=== PATIENT | male | born 1995 | race Caucasian/White ===

== ENCOUNTER 2021-08-13 06:40 | Emergency (ER) | payer SELFPAY ==
--- OUTSIDE RECORDS SUMMARY | 2021-08-13 06:43 | XMS REPORT | Continuity of Care Document ---
:1995 Author Organization [facility] t Address [address] [place] [address] Care Team Providers Name Role Phone Lab, Adc Fam Pob I Attending Clinician Unavailable Anene PERSONAL CARE AID Attending Clinician ANENE Attending Clinician Unavailable Doctor Unassigned, Name Attending Clinician Unavailable Payers Payer Name Policy Type Policy Number Effective Date Expiration Date S ource Problems This patient has no known problems. Allergies, Adverse Reactions, Alerts Allergy Allergy Status Severity Reaction(s) Onset Inactive Treating Comm ents Source Name Type Date Date Clinician NO KNOWN Drug Active Univers ALLERGIE Class ity of S [facility] Social History Social Habit Start Date Stop Date Quantity Comments Source Sex Assigned At Uni versity [facility] Smoking Status Start Date Stop Date Source Unknown if ever smoked Universit y [facility] Medications Ordered Filled Start Stop Current Ordering Indication Dosage Frequency Signature Comments Components Source Medication Medication Date Date Medication? Clinician (SIG) Name Name METFORMIN Yes Take by [facility] ers HCL 1-31 mouth. ity of (METFORMIN 06:30: [place]) Medical Branch METFORMIN Yes Take by [facility] ers HCL 1-31 mouth. ity of (METFORMIN 06:30: [place]) [address] [place] [address] Branch butalbital- Yes 1{tbl} Take 1 Un shameka acetaminoph 1-31 tablet by ity of en-caff 00:00: mouth [place] 50-325-40 00 every 4 Medical mg tablet (four) Branch hours as needed (Headache) . butalbital- Yes 1{tbl} Take 1 Un [place] acetaminoph 1-31 tablet [facility] 00:00: mouth [place] 50-325-40 00 every 4 Medical mg tablet (four) Branch hours as needed (Headache) . Procedures This patient has no known procedures. Encounters Start End Encounter Admission Attending Care Care Encounter Source Date/Time Date/Time Type Type Clinicians Facility Department ID 2020-02-25 2020-02-25 Laboratory Lab, [facility] Fam Pob I [facility] [id number] Univers 15:31:16 15:51:16 Only Ana Guanaco Chente [id number] ity of [place] [id number] Seth as Professio [phone] Nv dical [facility] [address] 2020-02-25 2020-02-25 Laboratory Lab, [facility] [id number] 15:31:16 15:51:16 Only [facility] Pob I Health [id number] [place] [id number] Professio [phone] nal [address] 2020-02-25 2020-02-25 Outpatient R ANA [facility] [id number] Univers 15:20:00 15:20:00 GUANACO rivera of [facility] 2020-02-25 2020-02-25 Letter Doctor FLORINDA [id number] 00:00:00 00:00:00 (Out) Unassigned, ZAFAR [id number] [place] [facility] [id number] [facility] 2020-02-25 2020-02-25 Letter Doctor FLORINDA [id number] Univers 00:00:00 00:00:00 (Out) Unassigned, ZAFAR [id number] ity of [place] [facility] [id number] Seth as [phone] [place] [address] Branch Results This patient has no known results.
[2021-08-13] MEDS ORDERED: ONDANSETRON 4 MG/2 ML VIAL ONE (07:36)
[2021-08-13] MEDS ORDERED: NA CHLORIDE 0.9% 1,000 ML ONE ×2 (07:36→09:15)
[2021-08-13 07:39] LABS: Absolute Lymphocytes (CBC) 1.4 K/uL (0.7-4.9); Hematocrit 51.5 % (39.6-49.0); Lymphocytes % 11.7 % (15.3-44.8); MPV 8.1 fL (7.6-11.3); RBC Red Blood Cell Count 5.89 M/uL (4.33-5.43)
[2021-08-13 07:48] LABS: Arterial Blood Carboxyhemoglob 1.7 % (0-1.5); Blood Gas Oxyhemoglobin 95.1 % (94-97); Blood O2 Saturation 97.7 % (92-98.5)
[2021-08-13 08:00] LABS: BUN Blood Urea Nitrogen 31 mg/dL (7-18); Bicarbonate 32 mmol/L (21-32); Glucose Level 355 mg/dL (74-106); Potassium 3.8 mmol/L (3.5-5.1); Sodium Level 128 mmol/L (136-145)
[2021-08-13] MEDS ORDERED: INSULIN -REGULAR HUMAN 50 UNIT/0.5 ML ML ONE (08:50)
--- NOTE | 2021-08-13 09:00 | RAD REPORT ---
EXAM DESCRIPTION: CTAbdomen Pelvis W Contrast - 08/13/2021 8:24 am CLINICAL HISTORY: Abdominal pain. nausea/vomiting, elevated WBC COMPARISON: No comparisons TECHNIQUE: Biphasic CT imaging of the abdomen and pelvis was performed with 100 ml non-ionic IV cont rast. All CT scans are performed using dose optimization technique as appropriate and may include automated exposure control or mA/KV adjustment according to patient size. FINDINGS: The lung bases are clear. The liver, spleen, pancreas, adrenal glands and kidneys are within normal limits. No bowel obstruction, free air, free fluid or abscess. The appendix is normal. No evidence of signi ficant lymphadenopathy. No suspicious bony findings. IMPRESSION: No acute intra-abdominal or pelvic finding.
[2021-08-13 10:46] LABS: BUN Blood Urea Nitrogen 26 mg/dL (7-18); Bicarbonate 31 mmol/L (21-32); Glucose Level 276 mg/dL (74-106); Potassium 3.6 mmol/L (3.5-5.1); Sodium Level 131 mmol/L (136-145)
--- NOTE | 2021-08-13 10:57 | ER ---
Nurse's Notes [facility] Name: Jone Kemp Age: 26 yrs Sex: Male : 1995 Arrival Date: 08/13/2021 Time: 06:42 Bed 5 Private MD: Diagnosis: Hyperglycemia, unspecified;Dehydration Presentation: 08/13 07:16 Chief complaint: Patient states: Throwing up, dizziness, not able to keep anything ke1 down, not even water since couple days ago. Coronavirus screen: Vaccine status: Patient reports receiving the 2nd dose of the covid vaccine. unknown. Ebola Screen: Patient negative for fever greater than or equal to 101.5 degrees Fahrenheit, and additional compatible Ebola Virus Disease symptoms No symptoms or risks identified at this time. Initial Sepsis Screen: Does the patient meet any 2 criteria? No. Patient's initial sepsis screen is negative. Initial Sepsis Screen: Does the patient have a suspected source of infection? No. Patient's initial sepsis screen is negative. Risk Assessment: Do you want to hurt yourself or someone else? Patient reports no desire to harm self or others. Onset of symptoms was July 10, 2021. 07:16 Acuity: ALEX 2 ke1 07:16 Method Of Arrival: Ambulatory jd3 Triage Assessment: 07:30 Pain: Complains of pain in abdomen Pain Quality of pain is described as crampy, Pain ke1 began suddenly, Is intermittent. GI: Reports lower abdominal pain, upper abdominal pain. Historical: - Allergies: 07:34 No Known Allergies; ke1 - Home Meds: 07:34 insulin [Active]; ke1 - PSHx: 07:35 Tonsillectomy; ke1 - Immunization history:: Client reports receiving the 2nd dose of the Covid vaccine. - Social history:: Smoking status: Reported history of juuling and/or vaping. - Family history:: not pertinent. - Hospitalizations: : No recent hospitalization is reported. Screenin:41 Abuse screen: Denies threats or abuse. Nutritional screening: No deficits noted. jd3 Tuberculosis screening: No symptoms or risk factors identified. Fall Risk IV access (20 points). Ambulatory Aid- None/Bed Rest/Nurse Assist (0 pts). Gait- Normal/Bed Rest/Wheelchair (0 pts) Mental Status- Oriented to own ability (0 pts). Total Cao Fall Scale indicates No Risk (0-24 pts). Assessment: 07:40 General: Appears in no apparent distress. uncomfortable, Behavior is calm, cooperative, jd3 appropriate for age. Pain: Complains of pain in abdomen Quality of pain is described as aching, tender. Neuro: Level of Consciousness is awake, alert, obeys commands, Oriented to person, place, time, situation. Cardiovascular: Denies chest pain, Capillary refill < 3 seconds Patient's skin is warm and dry. Rhythm is regular. Respiratory: Airway is patent Respiratory effort is even, unlabored, Respiratory pattern is regular, symmetrical, Denies cough, shortness of breath. GI: Abdomen is flat, non-distended, Abd is soft X 4 quads Abdomen is tender to palpation X 4 quads. Reports lower abdominal pain, upper abdominal pain, nausea, vomiting. : No signs and/or symptoms were reported regarding the genitourinary system. EENT: No signs and/or symptoms were reported regarding the EENT system. Derm: Skin is intact, Skin is dry, Skin is normal, Skin temperature is warm. Musculoskeletal: Circulation, motion, and sensation intact. Range of motion: intact in all extremities. 08:10 Reassessment: No changes from previously documented assessment. Patient and/or family jd3 updated on plan of care and expected duration. Pain level reassessed. Patient is alert, oriented x 3, equal unlabored respirations, skin warm/dry/pink. 09:23 Reassessment: No changes from previously documented assessment. Patient and/or family jd3 updated on plan of care and expected duration. Pain level reassessed. Patient is alert, oriented x 3, equal unlabored respirations, skin warm/dry/pink. 10:24 Reassessment: Patient appears in no apparent distress at this time. Patient and/or jd3 family updated on plan of care and expected duration. Pain level reassessed. Patient is alert, oriented x 3, equal unlabored respirations, skin warm/dry/pink. Vital Signs: 07:16 BP 130 / 87; Pulse 119; Resp 19; Temp 98.4; Pulse Ox 100% on R/A; Weight 58.97 kg; ke1 Height 5 ft. 6 in. (167.64 cm); Pain 7/10; 07:37 BP 119 / 97; Pulse 93; Resp 18; Temp 98.4; Pulse Ox 100% on R/A; ke1 08:10 BP 121 / 85; Pulse 88; Resp 18 S; Pulse Ox 97% on R/A; jd3 09:23 BP 130 / 85; Pulse 85; Resp 18 S; Pulse Ox 100% on R/A; jd3 10:24 Pulse 81; Resp 17 S; Pulse Ox 98% on R/A; jd3 11:16 BP 121 / 74; Pulse 95; Resp 18; Temp 98.7; Pulse Ox 99% on R/A; ke1 07:16 Body Mass Index 20.98 (58.97 kg, 167.64 cm) ke1 ED Course: 06:42 Patient arrived in ED. ja2 06:56 John Cruz MD is Attending Physician. rn 07:16 Remberto Mueller, RN is Primary Nurse. jd3 07:30 Triage completed. ke1 07:38 Arm band placed on right wrist. ke1 07:42 Patient has correct armband on for positive identification. Bed in low position. Call jd3 light in reach. Side rails up X2. bus driver/monitor on. Pulse ox on. NIBP on. 08:24 CT Abd/Pelvis - IV Contrast Only In Process Unspecified. EDMS 08:48 EKG done, by ED staff, reviewed by John Cruz MD. em1 08:48 Inserted saline lock: 20 gauge in right antecubital area, using aseptic technique. ke1 10:13 Basic Metabolic Panel Sent. ke1 11:12 No provider procedures requiring assistance completed. IV discontinued. ke1 Administered Medications: 07:39 Drug: NS 0.9% 1000 ml Route: IV; Rate: 1000 ml; Site: right antecubital; jd3 10:02 Follow up: Response: No adverse reaction; IV Status: Completed infusion ke1 07:39 Drug: Zofran (Ondansetron) 4 mg Route: IVP; Site: right antecubital; jd3 11:16 Follow up: Response: No adverse reaction ke1 08:49 Drug: Insulin Regular Human 10 units {Co-Signature: jramsey (Remberto Mueller RN).} Route: ke1 Sub-Q; Site: right upper arm; 11:15 Follow up: Response: No adverse reaction ke1 09:16 Drug: NS 0.9% 1000 ml Route: IV; Rate: 1000 ml; Site: right forearm; ke1 10:01 Follow up: Response: No adverse reaction; IV Status: Completed infusion ke1 Outcome: 10:57 Discharge ordered by . rn 11:13 Discharged to home ambulatory. ke1 11:13 Condition: stable 11:13 Discharge instructions given to patient. 11:14 Patient left the ED. ke1 Signatures: Dispatcher [employer] EDMS John Cruz MD MD rn Martinez, Eric em1 Davies, Jonathon, RN RN jd3 Melissa Sargent Kouassi, RN RN ke1 Jonathon Davies RN jd3 Corrections: (The following items were deleted from the chart) 09:22 07:16 Method Of Arrival: Other [facility] ar[place]
--- NOTE | 2021-08-13 10:57 | EDPHYS ---
Physician Documentation [facility] Name: Jone Kemp Age: 26 yrs Sex: Male : 1995 Arrival Date: 08/13/2021 Time: 06:42 Bed 5 Private MD: ED Physician John Cruz HPI: 08/13 07:32 This 26 yrs old Male presents to ER via Other with complaints of DEHYDRATION, rn Nausea/Vomiting. 07:32 The patient presents to the emergency department with nausea, vomiting. Onset: The rn symptoms/episode began/occurred 3 day(s) ago. Possible causes: Hyperglycemia. The symptoms are aggravated by nothing. The symptoms are alleviated by nothing. Associated signs and symptoms: Pertinent positives: nausea, vomiting, Pertinent negatives: fever, GI bleeding. Severity of symptoms: At their worst the symptoms were moderate in the emergency department the symptoms are unchanged. The patient has experienced similar episodes in the past. The patient has not recently seen a physician. , unaware of his current glucose. Reports 3 days of nausea/vomiting/weakness and malaise. Denies fever or recent illness. Denies cough or congestion. Denies diarrhea.. Historical: - Allergies: 07:34 No Known Allergies; ke1 - Home Meds: 07:34 insulin [Active]; ke1 - PSHx: 07:35 Tonsillectomy; ke1 - Immunization history:: Client reports receiving the 2nd dose of the Covid vaccine. - Social history:: Smoking status: Reported history of juuling and/or vaping. - Family history:: not pertinent. - Hospitalizations: : No recent hospitalization is reported. ROS: 07:32 Constitutional: Negative for fever, chills, and weight loss, Eyes: Negative for injury, rn pain, redness, and discharge, Neck: Negative for injury, pain, and swelling, Cardiovascular: Negative for chest pain, palpitations, and edema, Respiratory: Negative for shortness of breath, cough, wheezing, and pleuritic chest pain, Abdomen/GI: Positive for nausea and vomiting Back: Negative for injury and pain, : Negative for injury, bleeding, discharge, and swelling, MS/Extremity: Negative for injury and deformity, Skin: Negative for injury, rash, and discoloration, Neuro: Negative for headache, numbness, tingling, and seizure. Exam: 07:32 Constitutional: This is a well developed, well nourished patient who is awake, alert, rn appears weak but ambulatory to room without difficulty or requiring assistance Head/Face: Normocephalic, atraumatic. Eyes: Periorbital areas with no swelling, redness, or edema. ENT: Dry mucous membranes Cardiovascular: Tachycardic, regular Respiratory: No increased work of breathing, no retractions or nasal flaring. Abdomen/GI: Soft, non-tender Skin: Warm, dry MS/ Extremity: Pulses equal, no cyanosis. Neuro: Awake and alert, GCS 15 07:58 ECG was reviewed by the Attending Physician. rn Vital Signs: 07:16 BP 130 / 87; Pulse 119; Resp 19; Temp 98.4; Pulse Ox 100% on R/A; Weight 58.97 kg; ke1 Height 5 ft. 6 in. (167.64 cm); Pain 7/10; 07:37 BP 119 / 97; Pulse 93; Resp 18; Temp 98.4; Pulse Ox 100% on R/A; ke1 08:10 BP 121 / 85; Pulse 88; Resp 18 S; Pulse Ox 97% on R/A; jd3 09:23 BP 130 / 85; Pulse 85; Resp 18 S; Pulse Ox 100% on R/A; jd3 10:24 Pulse 81; Resp 17 S; Pulse Ox 98% on R/A; jd3 11:16 BP 121 / 74; Pulse 95; Resp 18; Temp 98.7; Pulse Ox 99% on R/A; ke1 07:16 Body Mass Index 20.98 (58.97 kg, 167.64 cm) ke1 MDM: 06:56 Patient medically screened. rn 07:58 Data interpreted: Arterial blood gas: pH: 7.529, PO2: 96.9, PCO2: 36.1, HCO3: 30, rn Oxygen saturation: 97.7, Oxygen: on room air, Interpretation: metabolic alkalosis. 10:54 Differential diagnosis: Nonspecific abd pain, gastritis, cholecystitis, pancreatitis, rn appendicitis, viral gastroenteritis, gastroenteritis, DKA, hyperglycemia. Data reviewed: vital signs, nurses notes, lab test result(s), radiologic studies, CT scan, and as a result, I will discharge patient. Counseling: I had a detailed discussion with the patient and/or guardian regarding: the historical points, exam findings, and any diagnostic results supporting the discharge/admit diagnosis, lab results, radiology results, the need for outpatient follow up, to return to the emergency department if symptoms worsen or persist or if there are any questions or concerns that arise at home. Response to treatment: the patient's symptoms have markedly improved after treatment, and as a result, I will discharge patient. Special discussion: Based on the patient's Hx, exam, and Dx evaluation, there is no indication for emergent surgery or inpatient Tx. It is understood by the patient/guardian that if the Sx's persist or worsen they need to return immediately for re-evaluation. I discussed with the patient/guardian in detail that at this point there is no indication for admission to the hospital. It is understood, however, that if the symptoms persist or worsen the patient needs to return immediately for re-evaluation. Based on the history and exam findings, there is no indication for further emergent testing or inpatient evaluation. I discussed with the patient/guardian the need to see the primary care provider for further evaluation of the symptoms. ED course: BMP improved after IV hydration. ABG without acidosis. Improved anion gap. Glucose in 200s. Patient states just got needles for his insulin. Will discharge home.. 08/13 07:08 Order name: CBC with Diff; Complete Time: 08:03 rn 08/13 07:08 Order name: Basic Metabolic Panel; Complete Time: 08: rn 08/13 07:08 Order name: SARS-COV-2 RT PCR (Document "Date of Onset" if Symptomatic); Complete Time: rn 09:08/13 07:08 Order name: Ketone, Serum; Complete Time: 08: rn 08/13 07:08 Order name: ABG; Complete Time: 10:52 rn 08/13 07:41 Order name: Glucose, Ancillary Testing; Complete Time: 08:03 EDMS 08/13 07:08 Order name: IV Start; Complete Time: 07:31 rn 08/13 07:08 Order name: EKG; Complete Time: 07: rn 08/13 08:03 Order name: CT Abd/Pelvis - IV Contrast Only; Complete Time: 09:05 rn 08/13 10:02 Order name: Basic Metabolic Panel; Complete Time: 10:52 ke1 08/13 07:08 Order name: Glucose Level; Complete Time: 07:31 rn 08/13 07:08 Order name: EKG - Nurse/Tech; Complete Time: 08:08 rn EC:58 Rate is 80 beats/min. Rhythm is regular. QRS [place] is Normal. IN interval is normal. QRS rn interval is normal. QT interval is normal. No Q waves. T waves are Normal. No ST changes noted. Clinical impression: Normal ECG. Interpreted by me. Reviewed by me. Administered Medications: 07:39 Drug: NS 0.9% 1000 ml Route: IV; Rate: 1000 ml; Site: right antecubital; jd3 10:02 Follow up: Response: No adverse reaction; IV Status: Completed infusion ke1 07:39 Drug: Zofran (Ondansetron) 4 mg Route: IVP; Site: right antecubital; jd3 11:16 Follow up: Response: No adverse reaction ke1 08:49 Drug: Insulin Regular Human 10 units {Co-Signature: claude (Remberto Mueller RN).} Route: ke1 Sub-Q; Site: right upper arm; 11:15 Follow up: Response: No adverse reaction ke1 09:16 Drug: NS 0.9% 1000 ml Route: IV; Rate: 1000 ml; Site: right forearm; ke1 10:01 Follow up: Response: No adverse reaction; IV Status: Completed infusion ke1 Disposition Summary: 08/13/21 10:57 Discharge Ordered Location: Home rn Problem: new rn Symptoms: have improved rn Condition: Stable rn Diagnosis - Hyperglycemia, unspecified rn - Dehydration rn Followup: rn - With: Private Physician - When: As needed - Reason: Recheck today's complaints, Re-evaluation by your physician Discharge Instructions: - Discharge Summary Sheet rn - Dehydration, Adult rn - Hyperglycemia rn - Blood Glucose Monitoring, Adult rn Forms: - Medication Reconciliation Form rn - Thank You Letter rn - Antibiotic rn admissions - Prescription Opioid Use rn Prescriptions: - ondansetron 4 mg Oral tablet,disintegrating - take 1 tablet by ORAL route every 8 hours As needed; 15 tablet; Refills: 0, rn Product Selection Permitted Signatures: Dispatcher [employer] John Waite MD MD rn Davies, Jonathon, RN RN Sanjeev Cruz RN RN ke1 Remberto barond3 Corrections: (The following items were deleted from the chart) 07:34 07:32 Constitutional: Negative for fever, chills, and weight loss, Eyes: Negative for rn injury, pain, redness, and discharge, Neck: Negative for injury, pain, and swelling, Cardiovascular: Negative for chest pain, palpitations, and edema, Respiratory: Negative for shortness of breath, cough, wheezing, and pleuritic chest pain, Abdomen/GI: Positive for nausea and vomiting Back: Negative for injury and pain, : Negative for injury, bleeding, discharge, and swelling, MS/Extremity: Negative for injury and deformity, Skin: Negative for injury, rash, and discoloration, Neuro: Negative for headache, weakness, numbness, tingling, and seizure, rn 07:35 07:32 Constitutional: This is a well developed, well nourished patient who is awake, rn alert, and in no acute distress. rn
[2021-08-13 11:20] VITALS: TEMP 98.4
[2021-08-13 11:23] VITALS: BP 130/85
[2021-08-13 11:25] VITALS: O2SAT 98
--- NOTE | 2021-08-14 11:33 | EKG ---
Test Date: 2021-08-13 Test Time: 07:58:17 Pleating Machine Operator: TAMIA MEASUREMENT RESULTS: Intervals: Rate: 80 AL: 128 QRSD: 90 QT: 376 QTc: 433 [place]: P: 52 AL: 128 QRS: 83 T: 68 INTERPRETIVE STATEMENTS: Normal sinus rhythm Normal ECG No previous ECG available for comparison Electronically Signed On 08-14-21 11:30:36 PLANNER INTERN by Heron Oneil
== END 2021-08-13 11:14 | disposition home or self-care (01) ==
LOC: ER 06:40
DX: E86.0 Dehydration (principal); R73.9 Hyperglycemia, unspecified; Z20.822 Contact with and (suspected) exposure to COVID-19
CPT/HCPCS: 36415; 74177; 80048; 82010; 82805; 82947; 85025; 93005; 96361; 96372; 96374; 99284; J2405; J7030; Q9967; U0003